=== PATIENT | female | born 1995 | race Caucasian/White ===

== ENCOUNTER 2017-07-20 17:58 | Emergency (ER) | payer OTHER ==
[~2017-07-20] VITALS: Ht 160 cm; Wt 117.9 kg
[2017-07-20] MEDS ORDERED: INFANT'S I50 MG/1.21 (18:11)
== END 2017-07-20 19:23 | disposition home or self-care (01) ==
LOC: ER 17:58
DX: L02.214 Cutaneous abscess of groin (principal)

== ENCOUNTER → 2017-07-21 | Emergency (ER) | payer OTHER ==
[~2017-07-21] VITALS: Ht 162.6 cm; Wt 81.6 kg
[~2017-07-21] MED LIST: INFANT'S I50 MG/1.21
== END | disposition home or self-care (01) ==
LOC: ER 16:51
DX: R19.04 Left lower quadrant abdominal swelling, mass and lump (principal)